=== PATIENT | male | born 2000 | race African-American/Black ===

== ENCOUNTER 2021-04-09 04:25 | Emergency (ER) | payer OTHER ==
[~2021-04-09] VITALS: Ht 177.8 cm; Wt 109.1 kg
[2021-04-09] MEDS ORDERED: IBUPROFEN 800 MG TABLET PO ONE (06:30)
[2021-04-09 07:18] VITALS: BP 139/77
== END 2021-04-09 07:26 | disposition home or self-care (01) ==
LOC: EMS 04:33
DX: S40.011A Contusion of right shoulder, initial encounter (principal); W19.XXXA Unspecified fall, initial encounter; Y93.89 Activity, other specified; Y92.89 Other specified places as the place of occurrence of the external cause; Y99.0 Civilian activity done for income or pay
CPT/HCPCS: 99283

== ENCOUNTER 2022-02-25 02:29 | Emergency (ER) | payer SELFPAY ==
[~2022-02-25] VITALS: Ht 177.8 cm; Wt 140.9 kg
[2022-02-25] MEDS ORDERED: KETOROLAC TROMETHAMINE 30 MG/ML VIAL IVP ONE (03:30)
[2022-02-25] MEDS ORDERED: SODIUM CHLORIDE 0.9% 2,000 ML IV ONE (03:30)
[2022-02-25] MEDS ORDERED: ONDANSETRON HCL 4 MG/2 ML VIAL IVP ONE (03:30)
[2022-02-25] MEDS ORDERED: ONDA-104 PO (03:40)
[2022-02-25] MEDS ORDERED: ACET-66 PO (03:40)
[2022-02-25] MEDS ORDERED: ACETAMINOPHEN 500 MG TABLET PO ONE (03:45)
[2022-02-25] MEDS ORDERED: ONDANSETRON HCL 4 MG TABLET PO ONE (03:45)
[2022-02-25 04:00] VITALS: BP 133/79
== END 2022-02-25 04:38 | disposition home or self-care (01) ==
LOC: EMS 02:29
DX: K52.9 Noninfective gastroenteritis and colitis, unspecified (principal)
CPT/HCPCS: 99283; Q0162